=== PATIENT | male | born 1990 | race Caucasian/White ===

== ENCOUNTER 2020-05-21 18:05 | Outpatient (CLI) | payer BC, SELFPAY ==
[2020-05-21 18:39] LABS: SARS Covid-2 Antigen Negative (Negative)
== END 2020-05-21 18:06 | disposition home or self-care (01) ==
LOC: LAB 18:09
PROVIDERS: Visit Provider Nurse Practitioner Family
DX: Z20.828 Contact with and (suspected) exposure to other viral communicable diseases (principal)
CPT/HCPCS: 87426

== ENCOUNTER → 2020-09-05 10:30 | Outpatient (BNVA) | payer BC, SELFPAY | PROVIDERS: Visit Provider Nurse Practitioner Family | DX: Z11.59 Encounter for screening for other viral diseases (principal); Z20.828 Contact with and (suspected) exposure to other viral communicable diseases | CPT/HCPCS: 87426; 87635 ==